=== PATIENT | female | born 1955 | race Caucasian/White ===

== ENCOUNTER 2018-02-15 13:27 | Emergency (ER) | payer OTHER ==
[~2018-02-15] VITALS: Ht 167.6 cm; Wt 89.9 kg
[~2018-02-15 13:27] MED LIST: ATIVAN1 M1 PO; KLONOPIN1 M2 PO; MAALOX1 ML PO; METHADONE10 MG PO; OXYCODONE10 MG PO; OXYCONTIN30 MG PO; OXYIR5 MG PO; PAXIL20 MG PO; RAPAMUNE2 MG PO; SYNTHROID200 MCG PO; WELLBUTRIN SR100 MG PO; XANAX0.5 MG PO
[2018-02-15 15:38] VITALS: BP 174/108
== END 2018-02-15 15:40 | disposition home or self-care (01) ==
LOC: EME 13:27
DX: M25.551 Pain in right hip (principal); M54.16 Radiculopathy, lumbar region; G62.9 Polyneuropathy, unspecified; M81.0 Age-related osteoporosis without current pathological fracture; F32.9 Major depressive disorder, single episode, unspecified; F17.200 Nicotine dependence, unspecified, uncomplicated; Z79.891 Long term (current) use of opiate analgesic; Z87.19 Personal history of other diseases of the digestive system; Z91.5 Personal history of self-harm; Z94.4 Liver transplant status
CPT/HCPCS: 73502; 99281; 99284